=== PATIENT | male | born 1970 | race Caucasian/White ===

== ENCOUNTER 2024-06-06 10:34 | Outpatient (CLI) | payer OTHER, SELFPAY ==
--- NOTE | 2024-06-06 11:04 | EST_ITS ---
Patient Info Name: Keshawn Tejeda Age: 53 years : 1970 Gender: Male Ht: 70 in Wt: 194 lbs BSA: 2.10 m2 Exam Date: 06/06/2024 11:24 AM Exam Location: [facility] Patient Status: Outpatient Admit Date: 06/06/2024 Staff Ordering Physician: Dawna Gonzalez Attending Provider: DR. MANRIQUE Exercise Physician: Haider Manrique DO Exam Type: CA stress test treadmill Study Info Indications I10 - Essential (primary) hypertension Summary 1. 1. Negative Raj exercise stress test for ischemic ST changes by ECG criteria. However, patient achieved only 78% MPHR for age group which reduces sensitivity of the test. 2. 2. Good functional capacity, achieving 11.8 METs of workload. 3. 3. Baseline hypertension. 4. 4. Appropriate HR response to exercise. 5. 5. Appropriate HR recovery at 1 minute post exercise. 6. 6. No imaging with stress testing. 7. 7. Patient informed of the above results. Protocol: Raj Stress ECG Details Stage: REST Duration (min): 3 min : 11 sec Speed (mph): 0.0 Grade (%): 0 HR (bpm): 75 SBP (mmHg): 151 DBP (mmHg): 92 METS: --- Stage: REST Duration (min): 8 min : 27 sec Speed (mph): 0.0 Grade (%): 0 HR (bpm): 81 SBP (mmHg): 151 DBP (mmHg): 92 METS: --- Stage: STAGE 1 Duration (min): 1 min : 0 sec Speed (mph): 1.7 Grade (%): 10 HR (bpm): 94 SBP (mmHg): 151 DBP (mmHg): 92 METS: --- Stage: STAGE 1 Duration (min): 2 min : 0 sec Speed (mph): 1.7 Grade (%): 10 HR (bpm): 98 SBP (mmHg): 151 DBP (mmHg): 92 METS: --- Stage: STAGE 1 Duration (min): 3 min : 0 sec Speed (mph): 1.7 Grade (%): 10 HR (bpm): 97 SBP (mmHg): 167 DBP (mmHg): 76 METS: --- Stage: STAGE 2 Duration (min): 1 min : 0 sec Speed (mph): 2.5 Grade (%): 12 HR (bpm): 105 SBP (mmHg): 167 DBP (mmHg): 76 METS: --- Stage: STAGE 2 Duration (min): 2 min : 0 sec Speed (mph): 2.5 Grade (%): 12 HR (bpm): 105 SBP (mmHg): 165 DBP (mmHg): 78 METS: --- Stage: STAGE 2 Duration (min): 3 min : 0 sec Speed (mph): 2.5 Grade (%): 12 HR (bpm): 107 SBP (mmHg): 165 DBP (mmHg): 78 METS: --- Stage: STAGE 3 Duration (min): 1 min : 0 sec Speed (mph): 3.4 Grade (%): 14 HR (bpm): 114 SBP (mmHg): 173 DBP (mmHg): 77 METS: --- Stage: STAGE 3 Duration (min): 2 min : 0 sec Speed (mph): 3.4 Grade (%): 14 HR (bpm): 117 SBP (mmHg): 173 DBP (mmHg): 77 METS: --- Stage: STAGE 3 Duration (min): 3 min : 0 sec Speed (mph): 3.4 Grade (%): 14 HR (bpm): 121 SBP (mmHg): 173 DBP (mmHg): 77 METS: --- Stage: STAGE 4 Duration (min): 0 min : 51 sec Speed (mph): 4.2 Grade (%): 16 HR (bpm): 130 SBP (mmHg): 172 DBP (mmHg): 94 METS: --- Stage: RECOVERY Duration (min): 0 min : 8 sec Speed (mph): 1.5 Grade (%): 0 HR (bpm): 132 SBP (mmHg): 172 DBP (mmHg): 94 METS: --- Stage: RECOVERY Duration (min): 1 min : 8 sec Speed (mph): 0.0 Grade (%): 0 HR (bpm): 123 SBP (mmHg): 172 DBP (mmHg): 94 METS: --- Stage: RECOVERY Duration (min): 1 min : 19 sec Speed (mph): 0.0 Grade (%): 0 HR (bpm): 118 SBP (mmHg): 172 DBP (mmHg): 94 METS: --- Rest HR: 81 bpm Peak HR: 132 bpm Rest Sys BP: 151 mmHg Peak Sys BP: 173 mmHg Max Pred HR: 169 bpm % Max Pred HR: 78 % Target HR: 144 bpm Max RPP: 22,836 bpm*mmHg Mcdermott Score: 0 Termination Reason: Maximal effort/unable to continue Cardiac Symptoms: Leg cramping, Shortness of breath Max ST Seg Deviation: 1.90 mm Total Time: 9 min : 51 sec Rest Laura BP: 92 mmHg Peak Laura BP: 77 mmHg Angina Score: None Total METS: 11.8 Resting ECG Sinus rhythm. Stress ECG No ST changes. Arrhythmias None. Report Signatures
== END 2024-06-06 10:35 | disposition home or self-care (01) ==
PROVIDERS: PCP Family Medicine; Visit Provider Nurse Practitioner Family
DX: E78.5 Hyperlipidemia, unspecified (principal); I10 Essential (primary) hypertension; Z72.0 Tobacco use
CPT/HCPCS: 93017